=== PATIENT | male | born 1965 | race Caucasian/White ===

== ENCOUNTER 2017-05-01 11:19 | Emergency (ER) | payer MEDICAID, SELFPAY ==
[~2017-05-01] VITALS: Ht 172.7 cm; Wt 65.9 kg
[2017-05-01] MEDS ORDERED: ADACEL/BOOSTRIX VACCINE (DIPHTH/PERTUSS/ACELL/TETANUS)0.5ML SYR (90715) IM ONE (12:00)
[2017-05-01] MEDS ORDERED: LIDOCAINE 2% MDV 20 ML VIAL SC ONE (12:15)
[2017-05-01] MEDS ORDERED: BUPIVACAINE HCL 0.25% 10 ML VIAL SC ONE (12:15)
[2017-05-01] MEDS ORDERED: NAPR500T3 PO (12:38)
[2017-05-01] MEDS ORDERED: BACT800T5 PO (12:38)
[2017-05-01] MEDS ORDERED: LIDOCAINE 1% MDV 20ML VIAL As Ordered ONE (12:42)
[2017-05-01] MEDS ORDERED: cefTRIAXone SOD 1 GM VIAL (J0696) IM ONE (12:45)
[2017-05-01 13:11] VITALS: BP 110/76
== END 2017-05-01 13:12 | disposition home or self-care (01) ==
LOC: M ED 11:19
DX: L03.114 Cellulitis of left upper limb (principal); S60.552A Superficial foreign body of left hand, initial encounter; W45.8XXA Other foreign body or object entering through skin, initial encounter; Y92.89 Other specified places as the place of occurrence of the external cause; Y93.H9 Activity, other involving exterior property and land maintenance, building and construction; Y99.8 Other external cause status; F17.200 Nicotine dependence, unspecified, uncomplicated; Z89.021 Acquired absence of right finger(s)
CPT/HCPCS: 90471; 90715; 96372; 99282; J0696